=== PATIENT | male | born 1965 | race Caucasian/White ===

== ENCOUNTER 2017-12-29 06:06 | Observation (INO) | payer OTHER ==
[2017-12-22 14:05] VITALS: BMI 26.0
--- NOTE | 2017-12-28 19:13 | HISTORY & PHYSICAL EXAMINATION ---
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 He is 52. He is frustrated by other visitations. I think other physicians did not take him seriously. PAST MEDICAL HISTORY: Negative for hypertension, COPD, diabetes, carcinoma. PAST SURGICAL HISTORY: Diskectomy, lumbar spine. ALLERGIES: LATEX. CURRENT MEDICATIONS: Tylenol for headaches. SOCIAL HISTORY: No alcohol use. A 36-year cigarette use. Active. Wants to be more active, but he has profound weakness of his arms. REVIEW OF SYSTEMS: Denies any blurred vision, double vision, tinnitus or vertigo. Denies any chest pain, palpitations. No asthma, wheezing, shortness of breath. No nausea, vomiting, urgency, frequency, dysuria. Major complaint is his weakness to his all extremities. OBJECTIVE: VITAL SIGNS: Height 5 feet 7 inches, weight 152, blood pressure , pulse of 80, respiration rate 16. GENERAL: He is in distress. He is unsteady on his feet. He is engaging. He has no depression. HEENT: Essentially normal. Pupils react to light and accommodation. CARDIAC: Normal rate rhythm, 80 beats per minute, normal S1, S2, no S3. LUNGS: Clear. ABDOMEN: Soft, nontender. Bowel sounds present in all quadrants. NEUROLOGIC: He has clonus. He has hyperreflexia. He has weakness, muscle atrophy. He has Spurling maneuver and Lhermitte sign. He has a gait abnormality and loss of balance. Images demonstrate a large herniation to cervical spine, C5-C6. ASSESSMENT: Large herniation, cervical spine C5-C6. DISPOSITION: Includes decompression of spinal cord from an anterior approach, anterior cervical diskectomy and fusion, iliac crest bone.
[~2017-12-29] VITALS: Ht 172.7 cm; Wt 78.2 kg
[2017-12-29] VITALS (13 sets, daily range): BP systolic 118–150; BP diastolic 70–83; PULSE 70–100; TEMP 36.6–37.3; O2SAT 93–98; Ht 172.7 cm; Wt 78.2 kg
[~2017-12-29 06:06] MED LIST: ACET-1256 PO; CEFAZOLIN 2000MG IV PUSH 15 ML IV SCH; LACTATED RINGER'S 1000ML 1,000 ML IV SCH; NSS 1000ML IV SCH
[2017-12-29] MEDS ORDERED: BUPIVACAINE/EPINEPHRINE 0.5% MPF 1:200,000 30 ML VIAL ONE (07:06)
[2017-12-29] MEDS ORDERED: BACITRACIN 50000 UNIT VIAL ONE (07:06)
[2017-12-29] MEDS ORDERED: THROMBIN FOR SOLN 20000 UNIT KIT ONE (07:06)
[2017-12-29] MEDS ORDERED: GELATIN SPONGE SZ 100 ONE (07:06)
[2017-12-29] MEDS ORDERED: MIDAZOLAM HCL 1 MG/ML 2ML VIAL ONE (07:17)
[2017-12-29] MEDS ORDERED: EpHEDrine SULFATE INJ 50 MG/ML AMP ONE (07:17)
[2017-12-29] MEDS ORDERED: FENTANYL CITRATE INJ 50 MCG/1 ML 2 ML VIAL ONE ×2 (07:17→09:06)
[2017-12-29] MEDS ORDERED: DEXAMETHASONE SOD INJ 4 MG/ML VIAL ONE ×2 (07:17→09:22)
[2017-12-29] MEDS ORDERED: NEOSTIGMINE METHYLSULFATE 5 MG/5 ML SYR ONE (07:17)
[2017-12-29] MEDS ORDERED: PHENYLEPHRINE HCL INJ 10 MG/ML VIAL ONE ×2 (07:17→08:46)
[2017-12-29] MEDS ORDERED: PROPOFOL IV EMULSION 10 MG/ML 20 ML VIAL IV ONE (07:17)
[2017-12-29] MEDS ORDERED: GLYCOPYRROLATE INJ 0.2 MG/ML VIAL ONE (07:17)
[2017-12-29] MEDS ORDERED: SUCCINYLCHOLINE CHLORIDE 20 MG/ML 10 ML VIAL IV ONE (07:17)
[2017-12-29] MEDS ORDERED: ONDANSETRON INJ 2 MG/ML 2 ML VIAL ONE ×2 (07:17→09:22)
[2017-12-29] MEDS ORDERED: LIDOCAINE HCL 2% 2 ML VIAL (20MG/ML) ONE (07:17)
--- NOTE | 2017-12-29 07:18 | History & Physical Bridge Note ---
H&P Re-Evaluation Bridge Note: I have examined the patient, reviewed the History & Physical and in the interval since the performance of the History & Physical I have noted the following changes of clinical significance: No changes noted
[2017-12-29] MEDS ORDERED: EpHEDrine SULFATE INJ 50 MG/ML AMP IV PRN (08:00)
[2017-12-29] MEDS ORDERED: PHENYLEPHRINE 100MCG/ML 5ML SYR IV PRN (08:00)
[2017-12-29] MEDS ORDERED: ONDANSETRON INJ 2 MG/ML 2 ML VIAL IV PRN ×2 (08:00→10:00)
[2017-12-29] MEDS ORDERED: ATROPINE SULFATE 0.1 MG/ML 5ML SYR IV PRN (08:00)
[2017-12-29] MEDS ORDERED: ROCURONIUM BROMIDE 10 MG/ML 5 ML VIAL IV ONE (09:22)
--- NOTE | 2017-12-29 09:43 | DIAGNOSTIC IMAGING REPORT ---
INTRAOPERATIVE CERVICAL SPINE 3 VIEWS CLINICAL HISTORY: ACDF C5-C6 COMPARISON STUDY: No previous studies for comparison. FINDINGS: 6 seconds of fluoroscopic time was utilized. 3 intraoperative fluoroscopic spot images are provided for interpretation. Image #1 demonstrates a metallic probe projected over the anterior aspect of the C5-6 disc. Images #2 at 3 demonstrate postsurgical changes of an anterior discectomy at the C5-6 level with placement of an anterior metallic plate and screws. IMPRESSION: Intraoperative radiographs demonstrating surgical changes of an anterior cervical discectomy and fusion at the C5-6 level. Electronically signed by: Naresh Pruitt M.D. 12/29/2017 9:42 AM Dictated Date/Time: 12/29/2017 9:38 AM
--- NOTE | 2017-12-29 09:59 | [facility] Post Operative Brief Note ---
Immediate Operative Summary Operative Date Dec 29, 2017. Pre-Operative Diagnosis Large herniation, cervical spine C5-C6. Post-Operative Diagnosis Large herniation, cervical spine C5-C6. Procedure(s) Performed C5-C6 Anterior Cervical Discectomy and Fusion with Iliac Crest Bone Graft Surgeon Dr. Coffman Funding Analyst Surgeon(s) Wai Kam PA-C Estimated Blood Loss 20 cc Findings Consistent with Post-Op Diagnosis Specimens none per surgeon Drains manisha Anesthesia Type General Complication(s) none Disposition Disposition: Recovery Room / PACU
[2017-12-29] MEDS ORDERED: NALOXONE HCL 0.4 MG/1 ML VIAL/CARP IV PRN (10:00)
[2017-12-29] MEDS ORDERED: RACEPINEPHRINE 2.25% NEBU SOLN 0.5 ML VIAL INH PRN (10:00)
[2017-12-29] MEDS ORDERED: LORAZEPAM INJ 0.5 MG in SYRINGE 0.75 ML IV PRN (10:00)
[2017-12-29] MEDS ORDERED: MAGNESIUM HYDROXIDE SUSP 30 ML UDC PO PRN (10:00)
[2017-12-29] MEDS ORDERED: DEXAMETHASONE INJ 8 MG in SYRINGE 0 ML IV PRN (10:00)
[2017-12-29] MEDS ORDERED: OXYCODONE HCL IR 5 MG TAB (IMMEDIATE RELEASE) PO PRN (10:00)
[2017-12-29] MEDS ORDERED: ACETAMINOPHEN IV 1,000 MG in EMPTY BAG 0 ML IV PRN (10:00)
[2017-12-29] MEDS: HYDROmorphone INJ 2 MG/ML SYR/VIAL IV PRN ×6 (10:01→10:26)
[2017-12-29] MEDS ORDERED: HYDROmorphone INJ 0.5 MG/0.5 ML SYR ONE (10:19)
[2017-12-29] MEDS ORDERED: IV FLUIDS COMPLETED PRN (10:45)
--- NOTE | 2017-12-29 10:54 | OPERATIVE REPORT ---
DATE OF OPERATION: 12/29/2017 PREOPERATIVE DIAGNOSIS: Spinal cord compression, C5-C6 cervical spine. POSTOPERATIVE DIAGNOSIS: Same. PROCEDURE: Include anterior cervical discectomy and fusion C5-C6 cervical spine, left iliac crest bone graft. SURGEON: Sharad Coffman DO LOCKSTITCH CUP SETTER: Wai Kam PA-C DESCRIPTION OF PROCEDURE: The patient was taken the operating room, a general intubated anesthetic provided to the patient, kept supine, crest and cervical spine prepped and draped sterile. We made a skin incision, fascial incision, came down on the anterior aspect of the cervical spine. We took the longus colli musculature left and right. We did a formal discectomy at the C5-6 level. We put in deep self-retaining retractors. We meticulously dissected the disc material off the spinal cord. I used various sized pituitaries and various size micro nerve hooks as well. I went superior approximately 2 mm, inferior approximately 2 mm and try to gain more access, I was completely left and right with the uncovertebral joint. I was able to take out all the disc material, I could possibly see without injuring the spinal cord, of course. I was pleased with the evacuation and discectomy. We then went to the left iliac crest, made a skin incision, fascial incision, harvested a piece of allograft for the vacated discectomy site. It measured approximately 8 mm in height, tapered to 7, approximately 13, 14 mm across and about 18 mm in depth. This fit nicely into the vacated interval. We placed a small plate over the anterior construct. I was pleased with the anatomic fit. We locked down the plate, irrigated and closed with the different structures in the cervical spine and the iliac crest area. Sterile dressings applied throughout. ESTIMATED BLOOD LOSS: 20 mL. COMPLICATIONS: No complications. COUNTS: Sponge and needle counts correct at the close. IMPLANTS USED: By the [employer]. I attest to the content of the Intraoperative Record and any orders documented therein. Any exception s are noted below.
--- NOTE | 2017-12-29 10:58 | Anesthesiology Progress Note ---
Anesthesia Post Op Note Date & Time Dec 29, 2017 at 10:58 Vital Signs Pain Intensity: 4 Vital Signs Past 12 Hours Date Time Temp Pulse Resp B/P (MAP) Pulse Ox O2 Delivery O2 Flow Rate FiO2 12/29/17 10:50 36.5 65 16 130/73 97 Nasal Cannula 3 12/29/17 10:40 72 16 129/72 96 Nasal Cannula 3 12/29/17 10:30 78 16 135/67 98 Nasal Cannula 3 12/29/17 10:20 82 16 133/67 98 Nasal Cannula 3 12/29/17 10:10 75 16 138/71 98 Nasal Cannula 3 12/29/17 10:00 74 16 134/74 99 Oxymask 5 12/29/17 09:51 36.0 72 16 123/65 96 Oxymask 5 12/29/17 06:35 36.8 96 20 118/83 97 Room Air Notes Mental Status: alert / awake / arousable, participated in evaluation Pt Amnestic to Procedure: Yes Nausea / Vomiting: adequately controlled Pain: adequately controlled Airway Patency, RR, SpO2: stable & adequate BP & HR: stable & adequate Hydration State: stable & adequate Anesthetic Complications: no major complications apparent
[2017-12-29] MEDS: SODIUM CHLORIDE 0.9% 1000ML 1,000 ML IV SCH ×2 (11:13→22:05)
[2017-12-29] MEDS: CEFAZOLIN IV 1,000 MG in SYRINGE 0 ML IV SCH (17:57)
[2017-12-29] MEDS: DEXAMETHASONE INJ 6 MG in SYRINGE 0 ML IV SCH (17:57)
[2017-12-29] MEDS: DOCUSATE SODIUM 100 MG CAP PO SCH (20:36)
[2017-12-30] VITALS (17 sets, daily range): BP systolic 114–158; BP diastolic 58–79; PULSE 71–106; TEMP 36.2–37.1; O2SAT 91–98
[2017-12-30] MEDS: DEXAMETHASONE INJ 6 MG in SYRINGE 0 ML IV SCH ×2 (02:04→08:58)
[2017-12-30] MEDS: CEFAZOLIN IV 1,000 MG in SYRINGE 0 ML IV SCH ×2 (02:05→08:57)
--- NOTE | 2017-12-30 07:38 | Anesthesiology Progress Note ---
Anesthesia Post Op Note Date & Time Dec 30, 2017 at 07:38 Vital Signs Pain Intensity: 0.0 Vital Signs Past 12 Hours Date Time Temp Pulse Resp B/P (MAP) Pulse Ox O2 Delivery O2 Flow Rate FiO2 12/30/17 07:18 96 14 92 Room Air 12/30/17 07:06 36.8 93 18 127/68 (87) 95 Room Air 12/30/17 06:10 37.1 77 16 122/61 92 Room Air 12/30/17 04:10 36.8 75 16 114/60 93 Room Air 12/30/17 03:28 88 14 93 Room Air 12/30/17 02:10 36.8 80 16 119/68 93 Room Air 12/30/17 00:15 36.8 106 16 153/62 94 Room Air 12/30/17 00:15 Room Air 12/29/17 23:03 100 14 96 Room Air 12/29/17 22:10 37.2 80 18 136/72 (93) 95 Room Air 12/29/17 20:10 37.3 86 18 132/70 97 Room Air Notes Mental Status: alert / awake / arousable, participated in evaluation Pt Amnestic to Procedure: Yes Nausea / Vomiting: adequately controlled Pain: adequately controlled Airway Patency, RR, SpO2: stable & adequate BP & HR: stable & adequate Hydration State: stable & adequate Anesthetic Complications: no major complications apparent
[2017-12-30] MEDS: DOCUSATE SODIUM 100 MG CAP PO SCH ×2 (08:56→20:26)
[2017-12-30] MEDS ORDERED: HYDR-5688 PO (15:46)
--- NOTE | 2017-12-30 15:49 | Discharge Instructions ---
Discharge Instructions Date of Service Dec 30, 2017. Admission Reason for Admission: Cervical Disc Herniation C5-C6, Cord Compression Discharge Discharge Diagnosis / Problem: same Discharge Goals Goal(s): Improve function Activity Recommendations Activity Limitations: as noted below Lifting Limitations: no more than 5 pounds, until after follow-up appointment Exercise/Sports Limitations: until after follow-up appointment May Resume Sexual Activity: after follow-up appointment Shower/Bathe: keep incision dry home, rest , recover; collar only off to eat or change bandage . Instructions / Follow-Up Instructions / Follow-Up MEDICATIONS: Please take your prescriptions as instructed at your pre-op appointment. SPECIAL CARE: The following information is intended to answer some of the common questions and concerns regarding your surgery. Each patient is an individual and receives individual counselling throughout the course of treatment, from diagnosis to surgery all the way through recovery. What follows is not an exhaustive list, but should be a useful guide to some of the common questions and concerns patients have regarding their surgeries. These are not provided to keep you from calling us; rather, they give you something accurate and concrete to reference as you recover from your procedure. If you need us, we are available to you. As always, if you are not sure about something, call us at [phone]. MEDICAL EMERGENCIES: For these conditions, call 911 or go to your local hospital-based Emergency Department - not [facility] or equivalent. * Paralysis * Severe chest pain or difficulty breathing * Swelling or redness of either leg Spine procedures can be rather complex and though complications are rare, they do occur. In such cases, effective advice regarding emergency situations cannot always be addressed over the telephone. You may be referred to the emergency department for more effective management of your problem. Activity Limitations: It is important to give your body time to heal, so please limit your activities : * In general, don't do anything that moves your spine too much. You should avoid contact sports, twisting or heavy lifting while you recover. * 5-10 pounds is all you should attempt to lift. * You should not plan on driving for approximately 3 weeks and you should avoid traveling more than 30-45 minutes at a time. Longer trips should be broken down with walking breaks spaced appropriately. * Physical therapy is not usually required. * Walking and good posture practices will help you recover and regain your function. * Avoid straining or sudden changes in position. * In general, the goal is to take it easy and recover. Don't cause any new problems. Just relax. Showers: * Do not take a bath, use a Jacuzzi or hot tub or otherwise submerge your incision. * It is usually safe to take a shower 4-5 days after your surgery. * Your incision does not require any special creams or ointments. * Simply clean it with soap and water, dry and re-dress with a clean bandage afterwards. Incision: * Keep incision clean, dry and protected until your first follow-up appointment. * Some amount of drainage and redness is normal. Any drainage should be fairly clear and not have a foul odor. * If you feel anything is wrong or you have excessive drainage, please call us. * Your stitches and saravanan will be removed 10-14 days after your surgery. At the time of your first post-op visit. * Neck surgeries are typically closed with a suture underneath the skin. The steri-strips over the incision should be maintained until we see you in the office. Bracing: * You may be provided with a back or neck brace to encourage good posture and prevent injury. It will remind you not to do too much as you heal and will alert others to the fact that you have had a surgery. * Back braces may be removed for showers and when you are resting at home. They must be worn when you are walking around for any period of time or for travel. * For neck surgery, you will likely be provided with two cervical collars. The soft collar (Sidney or foam rubber) is worn most commonly throughout the day and while sleeping. The plastic collar (provided at the hospital) is for showering/bathing. * Except while eating, collars should remain in place. More specifically, bracing is provided for a purpose and should be worn. * Please obtain your brace or collars prior to your operation and bring them to the hospital with you on the day of surgery. * You should also bring your collars to your post-op appointment with Dr. Coffman. You should always take good care of your body and practice healthy habits, especially following surgery. You should: * Follow your doctor's treatment plan * Sit and stand properly with good posture (ears over shoulders, shoulders over hips) Don't slouch * Learn to lift correctly * Exercise regularly (low-impact aerobic exercise is especially good, but check with your doctor first) * Generally, be up and walking for 5-10 minutes at a time at least 3-4 times per day from the day you get home * Increasing walking to tolerance until you can walk for 20-30 minutes at a time * Attain and maintain a healthy body weight * Eat healthy foods ( a well-balanced, low-fat diet rich in fruits and vegetables) and get enough calcium * Avoid excessive use of alcohol When to call our office - If you notice any of the following: * Increased pain not relieve by pain medicine * Fevers greater then 100 degrees F, chills or flu symptoms * Increased redness around incision * Drainage from the incision that is not clear * Any foul smelling drainage * Swelling or fluid collection beneath the skin Miscellaneous: * In the hospital, you may be given a walker or cane for support while walking. These are temporary needs and are intended to prevent injuries due to falls. You may discontinue them when you feel strong and steady enough on your feet. * Sleep in a comfortable position. We find that many patients find a lounge chair or recliner with several pillows to be beneficial in the early post-operative period. * The support stockings should be used for 7-10 days and may be discontinued when you are back to walking more and conducting usual household activities. No problem is insignificant. We are here to help you and get you well. Contact us at [phone]. Definitions: Foraminotomy: If part of the disc or a bone spur (osteophyte) is pressing on a nerve as it leaves the vertebra (through an exit called the foramen), a foraminotomy may be done. Otomy means "to make an opening." A foraminotomy is making the opening of the foramen larger, so the nerve can exit without being compressed. Laminotomy: Similar to the foraminotomy, a laminotomy makes a larger opening, this time in your bony plate protecting your spinal canal and spinal cord (the lamina). The lamina may be pressing on your nerve, so the surgeon may make more room for the nerves using a laminotomy. Laminectomy: Sometimes, a laminotomy is not sufficient. The surgeon may need to remove all or part of the lamina. This procedure is called a laminectomy. This can often be done at many levels without any harmful effects. Current Hospital Diet Patient's current hospital diet: Full Liquid Diet Discharge Diet Recommended Diet: Regular Diet Procedures Procedures Performed: C5-C6 Anterior Cervical Discectomy and Fusion with Iliac Crest Bone Graft Pending Studies Studies pending at discharge: no Medical Emergencies . Who to Call and When: Medical Emergencies: If at any time you feel your situation is an emergency, please call 911 immediately. . Non-Emergent Contact Non-Emergency issues call your: Primary Care Provider . "Provider Documentation" section prepared by Sharad Coffman. .
[2017-12-31] VITALS (7 sets, daily range): BP systolic 114–143; BP diastolic 67–78; PULSE 78–81; TEMP 36.6–36.8; O2SAT 93–97
[2017-12-31] MEDS ORDERED: BISACODYL 5 MG TABEC PO PRN (06:00)
--- NOTE | 2017-12-31 07:55 | DISCHARGE SUMMARY ---
SUBJECTIVE: Anjum is doing well postoperatively, better motion, decreased pain, good functional ability, improvement in his neurological status. OBJECTIVE: Vital signs stable. Wounds clean. He is alert, oriented. No chest pain or shortness of breath or calf tenderness. ASSESSMENT: Status post cervical spine surgery. PLAN: Includes discharge home in improved stable condition. We will see him back for followup in the office in 10 days. Instruction precautions provided here in our office and here in the hospital.
== END 2017-12-31 09:03 | disposition home or self-care (01) ==
LOC: C.ACU 06:06 → C.3E 09:56 → ENRESERV 10:38
PROVIDERS: ADMIT Orthopaedic Surgery Orthopaedic Surgery of the Spine; ATTEND Orthopaedic Surgery Orthopaedic Surgery of the Spine
DX: M50.20 Other cervical disc displacement, unspecified cervical region (principal)